=== PATIENT | female | born 1985 | race African-American/Black ===

== ENCOUNTER 2016-12-13 09:15 | Emergency (ER) | payer OTHER ==
[~2016-12-13 09:15] MED LIST: FLEXERIL PO; IBUPROFEN800 MG PO; NORCO 5/325 TAB1 TAB PO
[2016-12-15 17:23] LABS: CHLAMYDIA TRACH Not Detected (Not Detected); N GONOR Not Detected (Not Detected)
== END 2016-12-13 10:24 | disposition home or self-care (01) ==
LOC: CFTX 09:15 → CED 09:15 → CFTX 09:44
PROVIDERS: Physician Assistant
DX: T19.2XXA Foreign body in vulva and vagina, initial encounter (principal)
CPT/HCPCS: 87491; 87591; 87808; 87905; 96372; 99284; J0696